=== PATIENT | male | born 1995 | race African-American/Black ===

== ENCOUNTER 2019-10-17 14:38 | Emergency (ER) | payer OTHER ==
[2019-10-17 14:50] VITALS: BP 121/83; PULSE 113; RESP 20; TEMP 98.7
[2019-10-17] MEDS ORDERED: DEXAMETHASONE 4 MG TAB PO STA (15:11)
[2019-10-17] MEDS ORDERED: AMOXICILLIN 500MG STARTER PACK 3 CAP BTL PO STA (15:12)
--- NOTE | 2019-10-17 15:17 | ED ---
ENT HPI - General Chief complaint: ENT Stated complaint: Trouble swallowing Time Seen by Provider: 10/17/19 14:51 Source: patient, RN notes reviewed, old records reviewed Mode of arrival: ambulatory Limitations: no limitations - History of Present Illness Initial comments: Patient is a 24 year old male with sore throat and uvula swelling for the past 2 days. Patient reports pain with swallowing and low grade fever. He reports history of low grade fever and chill. Denies known history of sick contacts. - Related Data Previous Rx's Medication Instructions Recorded Amoxicillin 500 mg PO Q8H #30 capsule 10/17/19 Dexamethasone 0.75 mg PO DAILY #12 tab 10/17/19 Allergies Allergy/AdvReac Type Severity Reaction Status Date / Time No Known Allergies Allergy Verified 10/17/19 14:47 Review of Systems ROS Statement: Those systems with pertinent positive or pertinent negative responses have been documented in the HPI. ROS Other: All systems not noted in ROS Statement are negative. Past Medical History Past Medical History: No Reported History History of Any Multi-Drug Resistant Organisms: None Reported Past Surgical History: No Surgical Hx Reported Past Psychological History: No Psychological Hx Reported Smoking Status: Never smoker Past Alcohol Use History: Rare Past Drug Use History: None Reported General Exam - General Exam Comments Initial Comments: 24 year old male, no distress. Limitations: no limitations General appearance: alert, in no apparent distress Head exam: Present: atraumatic, normocephalic, normal inspection Eye exam: Present: normal appearance, PERRL, EOMI. Absent: scleral icterus, conjunctival injection, periorbital swelling ENT exam: Present: normal exam, mucous membranes moist. Absent: normal oropharynx (erythematous tonsil and exudate over R tonsil. Swollen uvula. No deviation or concern for peritonsillar abscess. ) Neck exam: Present: normal inspection. Absent: tenderness, meningismus, lymphadenopathy Respiratory exam: Present: normal lung sounds bilaterally. Absent: respiratory distress, wheezes, rales, rhonchi, stridor Cardiovascular Exam: Present: regular rate, normal rhythm, normal heart sounds. Absent: systolic murmur, diastolic murmur, rubs, gallop, clicks Neurological exam: Present: alert, oriented X3, CN II-XII intact Psychiatric exam: Present: normal affect, normal mood Skin exam: Present: warm, dry, intact, normal color. Absent: rash Course Vital Signs 10/17/19 14:47 Temperature 98.7 F Pulse Rate 113 H Respiratory 20 Rate Blood Pressure 121/83 O2 Sat by Pulse 99 Oximetry Medical Decision Making - Medical Decision Making 24 year old male presents with sore throat and swollen tonsil and uvula for 2 days. On exam he has evidence of exudate on right tonsil and evidence of peritonsillar cellulitis and erythema. He has no uvula deviation or evidence of of peritonsillar abscess at this time. Patient will be treated with amoxicillin and dexamethasone. Advised follow up with PCP and return parameters discussed. - Lab Data Lab Results 10/17/19 Range/Units 15:15 Group A Strep Rapid Negative (Negative) Disposition Clinical Impression: Acute pharyngitis, Uvulitis Disposition: HOME SELF-CARE Condition: Good Instructions (If sedation given, give patient instructions): Pharyngitis (ED) Additional Instructions: START perscribed steroids tomorrow. Finish entire antibiotic Rx. Follow up with PCP. Return to ED if any alarming signs or symptoms occur. Prescriptions: Amoxicillin 500 mg PO Q8H #30 capsule Dexamethasone 0.75 mg PO DAILY #12 tab Is patient prescribed a controlled substance at d/c from ED?: No Referrals: None,Stated [Primary Care Provider] - 1-2 days Time of Disposition: 15:15
== END 2019-10-17 15:28 | disposition home or self-care (01) ==
LOC: EC 14:38
DX: J02.9 Acute pharyngitis, unspecified (principal); K12.2 Cellulitis and abscess of mouth
CPT/HCPCS: 87081; 87430; 99284; J8540